=== PATIENT | female | born 1980 ===

== ENCOUNTER → 2024-02-22 16:19 | Outpatient (REF) | payer SELFPAY ==
[2024-02-22 18:59] LABS: Rubella Positive
[2024-02-22 19:58] LABS: Hepatitis B Surface Antibody Positive
== END ==
LOC: CLAB 16:19
PROVIDERS: ATTENDING PHYSICIAN Emergency Medicine
DX: Z02.1 Encounter for pre-employment examination (principal)
CPT/HCPCS: 36415; 86706; 86735; 86762; 86765; 86787